=== PATIENT | female | born 1975 | race African-American/Black ===

== ENCOUNTER 2017-10-09 19:30 | Outpatient (CLI) | payer OTHER | END 2017-10-09 19:31 | disposition home or self-care (01) | LOC: SLEEPLAB 19:30 | PROVIDERS: ATTEND Internal Medicine | DX: G47.33 Obstructive sleep apnea (adult) (pediatric) (principal); R53.83 Other fatigue; I10 Essential (primary) hypertension; G47.00 Insomnia, unspecified; G47.10 Hypersomnia, unspecified | CPT/HCPCS: 95811 ==

== ENCOUNTER 2018-03-23 14:07 | Outpatient (CLI) | payer OTHER | END 2018-03-23 14:08 | disposition home or self-care (01) | LOC: DTY/OP 14:07 | PROVIDERS: ATTEND Surgery | DX: E66.01 Morbid (severe) obesity due to excess calories (principal) | CPT/HCPCS: 97802 ==

== ENCOUNTER 2018-09-23 13:21 | Outpatient (CLI) | payer OTHER ==
--- NOTE | 2018-09-24 11:56 | MMO ---
Bilateral MAMMO Bilat Screen [facility]. CLINICAL HISTORY: Patient is 43 years old and is seen for screening. The patient has no family history of breast cancer. The patient has no personal history of cancer. VIEWS: The views performed were: bilateral craniocaudal with tomosynthesis; bilateral mediolateral oblique with tomosynthesis; and bilateral exaggerated craniocaudal. FILMS COMPARED: The present examination has been compared to prior imaging studies performed at [facility] on 06/24/2012, 07/05/2012, 09/12/2013, 10/27/2014, 12/19/2015 and 02/10/2017. MAMMOGRAM FINDINGS: There are scattered fibroglandular densities. There are no suspicious masses, suspicious calcifications, or new areas of architectural distortion. IMPRESSION: THERE IS NO MAMMOGRAPHIC EVIDENCE OF MALIGNANCY. A ROUTINE FOLLOW-UP MAMMOGRAM IN 1 YEAR IS RECOMMENDED. THE RESULTS OF THIS EXAM WERE SENT TO THE PATIENT. ACR BI-RADS Category 1 - Negative MAMMOGRAPHY NOTE: 1. A negative mammogram report should not delay a biopsy if a dominant of clinically suspicious mass is present. 2. Approximately 10% to 15% of breast cancers are not detected by mammography. 3. Adenosis and dense breasts may obscure an underlying neoplasm.
== END 2018-09-23 13:22 | disposition home or self-care (01) ==
LOC: BICMAMMO 13:21
PROVIDERS: ATTEND Internal Medicine
DX: Z12.31 Encounter for screening mammogram for malignant neoplasm of breast (principal)
CPT/HCPCS: 77063; 77067

== ENCOUNTER 2019-07-14 12:02 | Day surgery (SDC) | payer OTHER ==
[2019-07-13 08:46] VITALS: BMI 52.7
[2019-07-14] MEDS ORDERED: PROPOFOL 200 MG/20 ML VIAL ONE (14:43)
--- NOTE | 2019-07-14 16:45 | OP ---
DATE OF PROCEDURE: 07/14/2019 PROCEDURE PERFORMED: Screening colonoscopy. PREPROCEDURE DIAGNOSIS: Preoperative screening colonoscopy. POSTPROCEDURE DIAGNOSES: 1. Exam to cecum; good bowel preparation. 2. Mild left-sided diverticulosis coli. 3. No polyps or colitis seen. 4. Normal retroflexed exam in the rectum. DESCRIPTION OF PROCEDURE: Written informed consent was obtained. The patient was brought to the endoscopy suite. Total intravenous anesthesia was administered by Dr. Louise. The patient was placed in the left lateral decubitus position. A digital rectal exam was performed that was unremarkable. A Pentax video colonoscope was inserted through the anal canal and advanced under direct visualization to the cecum. Position in the cecum was verified by clear identification of the appendiceal orifice and the ileocecal valve. The quality of the bowel preparation was good. Each colon segment was examined carefully as the colonoscope was slowly withdrawn from the cecum. Vascular pattern and haustral folds appeared normal. Occasional diverticular orifices were noted in the sigmoid colon. No polyp or colitis was seen. In the rectum, a retroflexed view showed no abnormalities. The colon was then decompressed as the colonoscope was completely removed from the patient. She was transferred to the Day Stay surgery area for postprocedure monitoring. There were no immediate complications. RECOMMENDATIONS: 1. Resume previous diet and medications. 2. Repeat colonoscopy for colon cancer screening in 10 years. 3. Follow up with Gastroenterology as needed. 4. Follow up with [facility] as scheduled. Job ID: [id number]
== END 2019-07-14 14:55 | disposition home or self-care (01) ==
LOC: SDC 12:02 → EEVIPCON 12:02 → SDC 14:55
PROVIDERS: ATTEND Internal Medicine Gastroenterology
PROC: 0DJD8ZZ Inspection of Lower Intestinal Tract, Via Natural or Artificial Opening Endoscopic (ICD-10-PCS; principal; 2019-07-14)
DX: Z12.11 Encounter for screening for malignant neoplasm of colon (principal); K57.30 Diverticulosis of large intestine without perforation or abscess without bleeding; I12.9 Hypertensive chronic kidney disease with stage 1 through stage 4 chronic kidney disease, or unspecified chronic kidney disease; N18.4 Chronic kidney disease, stage 4 (severe); D63.1 Anemia in chronic kidney disease; G47.30 Sleep apnea, unspecified; Z79.82 Long term (current) use of aspirin; Z79.899 Other long term (current) drug therapy; Z99.89 Dependence on other enabling machines and devices
CPT/HCPCS: J2704

== ENCOUNTER 2019-11-29 14:43 | Outpatient (CLI) | payer OTHER ==
--- NOTE | 2019-11-29 15:31 | MMO ---
Bilateral MAMMO Bilat Diag [facility]. CLINICAL HISTORY: Patient is 44 years old and is seen for diagnostic exam. The patient has no family history of breast cancer. The patient has no personal history of cancer. VIEWS: The views performed were: bilateral craniocaudal with tomosynthesis; bilateral mediolateral oblique with tomosynthesis; and bilateral mediolateral with tomosynthesis. FILMS COMPARED: The present examination has been compared to prior imaging studies performed at [facility] on 09/23/2018 and 11/29/2019, and at [facility] on 12/19/2015 and 02/10/2017. This study has been interpreted with the assistance of computer-aided detection. MAMMOGRAM FINDINGS: There are scattered fibroglandular densities. There are benign appearing calcifications in the right breast. No mammo or sono evidence of a left retroaerolar mass. There are no suspicious masses, suspicious calcifications, or new areas of architectural distortion. IMPRESSION: THERE IS NO MAMMOGRAPHIC EVIDENCE OF MALIGNANCY. A ROUTINE FOLLOW-UP MAMMOGRAM IN 1 YEAR IS RECOMMENDED. THE RESULTS OF THIS EXAM WERE SENT TO THE PATIENT. ACR BI-RADS Category 2 - Benign finding MAMMOGRAPHY NOTE: 1. A negative mammogram report should not delay a biopsy if a dominant of clinically suspicious mass is present. 2. Approximately 10% to 15% of breast cancers are not detected by mammography. 3. Adenosis and dense breasts may obscure an underlying neoplasm. Reported by: YOLETTE JAMA MD Electonically Signed: [id number]
--- NOTE | 2019-11-29 16:12 | ULT ---
LEFT BREAST ULTRASOUND: 11/29/19 HISTORY: Palpable abnormality in the retroareolar region of the left breast. FINDINGS: Correlation is made with the mammogram of same date. Sonographic evaluation of the retroareolar region of the left breast demonstrates no abnormality. IMPRESSION: BIRADS 2: Benign Finding(s) Routine annual screening mammography (for women over age 40).
== END 2019-11-29 14:44 | disposition home or self-care (01) ==
LOC: BICMAMMO 14:43
PROVIDERS: ATTEND Internal Medicine
DX: N64.4 Mastodynia (principal)
CPT/HCPCS: 77066; G0279

== ENCOUNTER 2020-04-19 13:54 | Outpatient (CLI) | payer OTHER | END 2020-04-19 13:55 | disposition home or self-care (01) | LOC: DTY/OP 13:54 | PROVIDERS: ATTEND Surgery | DX: E66.01 Morbid (severe) obesity due to excess calories (principal) | CPT/HCPCS: 97802 ==

== ENCOUNTER 2020-06-18 13:29 | Outpatient (CLI) | payer OTHER ==
--- NOTE | 2020-06-18 14:22 | RAD ---
EXAM: Two views chest PROVIDED CLINICAL HISTORY: Chronic kidney disease COMPARISON: 03/13/2011 FINDINGS: Cardiac and mediastinal silhouette appears within normal limits. Lungs appear free of significant opa city. No pleural fluid or pneumothorax apparent. IMPRESSION: No evidence for an acute cardiopulmonary process.
== END 2020-06-18 13:30 | disposition home or self-care (01) ==
LOC: BICRAD 13:29
PROVIDERS: ATTEND Internal Medicine Nephrology
DX: N18.5 Chronic kidney disease, stage 5 (principal)
CPT/HCPCS: 71046

== ENCOUNTER 2020-07-05 14:51 | Outpatient (CLI) | payer OTHER ==
--- NOTE | 2020-07-06 08:32 | ULT ---
ULTRASOUND VENOUS MAPPING UPPER EXTREMITIES BILATERAL: DATE: 07/05/2020 HISTORY: 44-year-old female. Z 01.818. N 18.6. End-stage renal disease. Surgical planning study for creation of arteriovenous fistula for hemodialys is. FINDINGS: RIGHT: Brachial artery:5 mm Radial artery:2.5 mm Ulnar artery:2.5 mm Cephalic vein: Proximal arm: 6.5 mm Mid arm: 7 mm Distal arm: 6 mm Antecubital: 7 mm Proximal forearm: 3.5 mm Mid forearm: 4 mm Distal forearm: 3 mm Basilic vein: Proximal arm: 6 mm Mid arm: 6.5 mm Distal arm: 6 mm Antecubital: 5 mm Proximal forearm: 1.5 mm Mid forearm: 2 mm Distal forearm: 1.5 mm LEFT: Brachial artery:4.5 mm Radial artery:2.5 mm Ulnar artery:2 mm Cephalic vein: Proximal arm: 3 mm Mid arm: 5.5 mm Distal arm: 4.5 mm Antecubital: 7 mm Proximal forearm: 3.5 mm Mid forearm: 3 mm Distal forearm: 3 mm Basilic vein: Proximal arm: 5 mm Mid arm: 5 mm Distal arm: 5.5 mm Antecubital: 8 mm Proximal forearm: 3.5 mm Mid forearm: 4 mm Distal forearm: 2.5 mm IMPRESSION: Bilateral basilic, and bilateral cephalic veins are consistently greater than 3 mm.
== END 2020-07-05 14:52 | disposition home or self-care (01) ==
LOC: BICULT 14:51
PROVIDERS: ATTEND Internal Medicine Nephrology
DX: Z01.818 Encounter for other preprocedural examination (principal); N18.6 End stage renal disease
CPT/HCPCS: 93970

== ENCOUNTER 2020-08-03 06:02 | Day surgery (SDC) | payer OTHER ==
[2020-08-01 15:44] VITALS: BMI 52.5
[2020-08-03] MEDS ORDERED: Fentanyl 100 MCG/2 ML VIAL ONE (06:35)
[2020-08-03] MEDS ORDERED: Midazolam HCl 2 mg/2 ml Vial ONE (06:35)
[2020-08-03] MEDS ORDERED: XYLOCAINE 2%-EPI 1:100,000 20 ML VIAL ONE (06:45)
[2020-08-03] MEDS ORDERED: Bupivacaine 0.25% HCL 30 ML VIAL ONE (06:45)
[2020-08-03] MEDS ORDERED: Sodium Chloride 0.9% 20 ML ONE (06:45)
[2020-08-03] MEDS ORDERED: Heparin 5,000 UNITS/ML VIAL ONE (06:45)
[2020-08-03] MEDS ORDERED: Protamine Sulfate 50 MG/5 ML VIAL ONE (06:45)
[2020-08-03] MEDS ORDERED: Heparin 10,000 UNITS/ 10 ML VIAL ONE (06:45)
[2020-08-03] MEDS ORDERED: PROPOFOL 200 MG/20 ML VIAL ONE (11:28)
[2020-08-03] MEDS ORDERED: Bupivacaine HCl 0.5%/Epinephrine 1:200,000/PF 30 ml Vial ONE (11:28)
--- NOTE | 2020-08-03 13:01 | RAD ---
PORTABLE CHEST: Date: 08/03/2020 HISTORY: Postop. COMPARISON: 06/18/2020. FINDINGS: Large caliber central line has been placed. The line overlies the SVC and appears to enter via the ri ght jugular. Lungs appear clear. No acute lung process. Heart and mediastinum unremarkable. IMPRESSION: No acute findings. POS: AGW
--- NOTE | 2020-08-03 13:09 | PDOC.OP ---
Operative Note - Operative Note Operative Note: DATE OF PROCEDURE: 08/03/2020 PROCEDURE: Tunneled hemodialysis catheter placement in the left arm Richard AV fistula. SURGEON: Ger Figueroa M.D. PREOPERATIVE DIAGNOSIS: End-stage renal failure. POSTOPERATIVE DIAGNOSIS: End-stage renal failure. HISTORY: Patient with end-stage renal failure who requires permanent access for initiation of hemodialysis. After reviewing vein mapping the decision was made to proceed with a primary fistula on the left arm. A tunneled dialysis catheter was also requested by the patient's loop machine operator for immediate institution of dialysis PROCEDURE: After informed consent was obtained and appropriate preoperative antibiotics were administered, the patient was taken to the Operating Room, placed in the supine position and monitored anesthesia care was administered. The neck and chest were prepped and draped in a standard sterile fashion and the patient placed in Trendelenburg position. A sterile ultrasound probe was used to identify the patent compressible right IJ vein which was accessed under direct ultrasound guidance. A wire was threaded through the needle and confirmed by ultrasound to be within the patent compressible vessel with the tip in the vena cava by fluoroscopy. Local anesthesia was infused to the skin and subcutaneous tissues of the right neck and chest. An infraclavicular incision was made and a catheter tunneled from the infraclavicular to the right IJ access site. The right IJ was sequentially dilated over the wire following which a dilator and sheath were placed over the wire and the dilator and wire removed leaving the sheath in place. The catheter was tunneled through the sheath which was then split and removed leaving the catheter in place. This was confirmed by fluoroscopy to be in good position in the superior vena cava with no kinking of the course of the catheter. Both ports easily aspirated dark venous nonpulsatile blood and easily flushed without resistance. Heparin was instilled to the quantity specified on the hub, and the hub was secured to the skin with 3-0 nylon sutures. The skin incision at the neck was closed in two layers with 4-0 Monocryl suture and Dermabond dressings were placed. The skin at the exit site was snugged up around the catheter with 4-0 Monocryl suture and Dermabond was placed there as well. Once the Dermabond was dry, a Biopatch and Tegaderm dressing was placed at the exit site. Attention was then turned to creation of the left AV fistula. A preoperative block had been placed by anesthesia and adequacy confirmed. The patient's arm was prepped and draped in standard sterile fashion. The palpable cephalic vein and radial artery were marked on the skin. An incision was made between these 2 structures and dissection carried down to the cephalic vein. This was felt to be of adequate caliber and quality to support an AV fistula. The vein was interrogated with cardiac dilators and easily accepted up to a 3.5 mm dilator. The vein was flushed with heparinized saline and clamped. The radial artery was identified and dissected free and was felt to be of adequate caliber and quality to support a fistula. This was dissected free. Heparin was administered systemically and allowed to circulate for 3 minutes. After the heparin had circulated for 3 minutes, the radial artery was clamped proximally and distally. An anterior arteriotomy was created with an 11 blade and extended with Nuñez scissors. The vein was spatulated and an end-to-side anastomosis was created with excellent technical result. Prior to tying down the anastomosis, the arterial inflow was released flushing the anastomosis. The anastomosis was then secured and hemostasis was verified. Flow was established first through the fistula following which flow was restored through the artery. The patient had a palpable thrill in the cephalic vein as well as a good Doppler signal to the level of the antecubital fossa. The wound was irrigated and examined for hemostasis was again confirmed to be excellent. The subcutaneous tissues were reapproximated with a running 3-0 Monocryl sutures and the skin was closed with running 4-0 subcuticular Monocryl suture. Dermabond dressings were placed. Prior to leaving the operating room the fistula was again examined by Doppler and a good bruit confirmed. The patient was then taken to recovery in good condition. Estimated blood loss was minimal. There were no complications. There were no specimens.
== END 2020-08-03 11:57 | disposition home or self-care (01) ==
LOC: SDC 06:02
PROVIDERS: ATTEND Surgery
PROC: 031C0AF Bypass Left Radial Artery to Lower Arm Vein with Autologous Arterial Tissue, Open Approach (ICD-10-PCS; principal; 2020-08-03)
DX: N18.6 End stage renal disease (principal); Z79.82 Long term (current) use of aspirin; Z79.899 Other long term (current) drug therapy
CPT/HCPCS: 71045; C1752; J0690; J1644; J2250; J2720; J3010; S0020

== ENCOUNTER 2020-09-11 06:55 | Day surgery (SDC) | payer OTHER ==
[2020-09-10 12:52] VITALS: BMI 53.5
[2020-09-11 08:50] VITALS: BP 133/83; TEMP 97.9
== END 2020-09-11 08:20 | disposition home or self-care (01) ==
LOC: SPEC 06:55
PROVIDERS: ATTEND Surgery
DX: T82.590A Other mechanical complication of surgically created arteriovenous fistula, initial encounter (principal); I12.0 Hypertensive chronic kidney disease with stage 5 chronic kidney disease or end stage renal disease; N18.6 End stage renal disease; N25.81 Secondary hyperparathyroidism of renal origin; E66.01 Morbid (severe) obesity due to excess calories; Z53.9 Procedure and treatment not carried out, unspecified reason; Z68.43 Body mass index [BMI] 50.0-59.9, adult; Z86.73 Personal history of transient ischemic attack (TIA), and cerebral infarction without residual deficits; Z79.82 Long term (current) use of aspirin; Z79.899 Other long term (current) drug therapy; Z99.2 Dependence on renal dialysis

== ENCOUNTER 2020-09-20 11:39 | Outpatient (CLI) | payer OTHER ==
[2020-08-01 11:45] LABS: Anion Gap 13 mmol/L (10-20); BUN (Urea Nitrogen) 35 mg/dL (7.0-18.7); Calc. Creatinine Clearance 0 mL/min (70-130); Calcium 10.3 mg/dL (7.8-10.44); Carbon Dioxide 20 mmol/L (22-29); Chloride 109 mmol/L (98-107); Glucose 101 mg/dL (70-105); Potassium 4.3 mmol/L (3.5-5.1); Sodium 138 mmol/L (136-145)
[2020-08-01 11:52] LABS: #Monocytes 0.7 10x3/uL (0.0-1.1); #Neutrophils 5.6 10x3/uL (1.5-8.4); %Basophils 0.4 % (0.0-2.0); %Eosinophils 0.4 % (0.0-6.0); %Lymphocytes 18.5 % (18.0-47.0); %Monocytes 8.6 % (0.0-10.0); Hemoglobin 10.5 g/dL (12.0-16.0); Mean Corpuscular HGB CONC 32.1 G/DL (32.0-36.0); Mean Corpuscular Hemoglobin 30.1 PG (27.0-33.0); Mean Corpuscular Volume 93.7 fl (80.0-100.0); Platelet Count 335 10x3/uL (130-400); RBC Distribution Width 13.2 % (11.5-14.5); Red Blood Cell (RBC) Count 3.49 10x6/uL (3.90-5.20); White Blood Cell (WBC) Count 7.8 10x3/uL (4.5-11.0)
[2020-08-02 02:43] LABS: SARS-CoV-2 PCR by NAA Not Detected (NotDetected)
[2020-09-20 14:32] LABS: #Eosinphils 0.1 10x3/uL (0.0-0.5); #Monocytes 0.4 10x3/uL (0.0-1.1); #Neutrophils 4.7 10x3/uL (1.5-8.4); %Basophils 0.4 % (0.0-2.0); %Eosinophils 1.5 % (0.0-6.0); %Lymphocytes 30.1 % (18.0-47.0); %Monocytes 5.4 % (0.0-10.0); %Neutrophils 62.5 % (40.0-75.0); Hemoglobin 10.5 g/dL (12.0-15.5); Mean Corpuscular HGB CONC 32.4 g/dL (32.0-36.0); Mean Corpuscular Hemoglobin 30.8 pg (27.0-33.0); Mean Platelet Volume 9.5 fl (7.4-10.4); Platelet Count 320 10x3/uL (150-450); Red Blood Cell (RBC) Count 3.41 10x6/uL (3.90-5.03); White Blood Cell (WBC) Count 7.5 10x3/uL (3.5-10.5)
[2020-09-20 14:37] LABS: Anion Gap 17 mmol/L (10-20); BUN (Urea Nitrogen) 15 mg/dL (7.0-18.7); Calc. Creatinine Clearance 0 mL/min (70-130); Calcium 9.7 mg/dL (7.8-10.44); Carbon Dioxide 30 mmol/L (22-29); Chloride 95 mmol/L (98-107); Glucose 215 mg/dL (70-105); Sodium 139 mmol/L (136-145)
[2020-09-21 04:28] LABS: SARS-CoV-2 PCR by NAA Not Detected (NotDetected)
== END 2020-09-20 11:40 ==
LOC: LABBT 11:39
PROVIDERS: ATTEND Physician Assistant
DX: Z01.812 Encounter for preprocedural laboratory examination (principal); Z20.822 Contact with and (suspected) exposure to COVID-19; N18.6 End stage renal disease; Z99.2 Dependence on renal dialysis
CPT/HCPCS: 80048; 85025; 87635; U0003; U0005

== ENCOUNTER 2020-09-25 10:03 | Day surgery (SDC) | payer OTHER ==
[2020-09-24 14:40] VITALS: BMI 49.7
[2020-09-25] MEDS ORDERED: Heparin 5,000 UNITS/ML VIAL ONE (10:41)
[2020-09-25] MEDS ORDERED: Bupivacaine 0.25% HCL 30 ML VIAL ONE (10:41)
[2020-09-25] MEDS ORDERED: Ioversol 68 % 50 ML VIAL ONE (10:41)
[2020-09-25] MEDS ORDERED: Lidocaine 1% w/Epinephrine 1:100K 20 ML VIAL ONE (10:41)
[2020-09-25] MEDS ORDERED: Protamine Sulfate 50 MG/5 ML VIAL ONE (10:41)
[2020-09-25] MEDS ORDERED: Fentanyl 100 MCG/2 ML VIAL ONE (10:55)
[2020-09-25] MEDS ORDERED: Midazolam HCl 2 mg/2 ml Vial ONE (10:55)
[2020-09-25] MEDS ORDERED: cefOXitin Sodium/Dextrose 2 GM/50 ML BAG ONE (12:27)
[2020-09-25] MEDS ORDERED: Propofol 500 MG/50 ML VIAL ONE (12:27)
[2020-09-25] MEDS ORDERED: Lidocaine 1% PF 5 ML VIAL ONE (12:45)
[2020-09-25] MEDS ORDERED: Bupivacaine HCl 0.5%/Epinephrine 1:200,000/PF 30 ml Vial ONE (12:45)
[2020-09-25] MEDS ORDERED: Heparin 1,000 UNITS/ML VIAL ONE (15:27)
[2020-09-25] MEDS ORDERED: Ondansetron ODT 4 MG TAB ONE (15:38)
== END 2020-09-25 15:55 | disposition home or self-care (01) ==
LOC: SDC 10:03
PROVIDERS: ATTEND Surgery
PROC: 03180AD Bypass Left Brachial Artery to Upper Arm Vein with Autologous Arterial Tissue, Open Approach (ICD-10-PCS; principal; 2020-09-25)
DX: I12.0 Hypertensive chronic kidney disease with stage 5 chronic kidney disease or end stage renal disease (principal); N18.6 End stage renal disease; G47.33 Obstructive sleep apnea (adult) (pediatric); E66.01 Morbid (severe) obesity due to excess calories; Z68.42 Body mass index [BMI] 45.0-49.9, adult; Z79.82 Long term (current) use of aspirin; Z79.899 Other long term (current) drug therapy; Z86.73 Personal history of transient ischemic attack (TIA), and cerebral infarction without residual deficits
CPT/HCPCS: J0694; J1644; J2250; J2704; J2720; J3010; Q0162; Q9967; S0020

== ENCOUNTER 2020-12-03 12:57 | Outpatient (CLI) | payer OTHER ==
[2020-12-03 14:53] LABS: #Eosinphils 0.2 10x3/uL (0.0-0.5); #Monocytes 0.5 10x3/uL (0.0-1.1); %Basophils 0.7 % (0.0-2.0); %Eosinophils 2.5 % (0.0-6.0); %Lymphocytes 39.6 % (18.0-47.0); %Monocytes 7.9 % (0.0-10.0); %Neutrophils 49.1 % (40.0-75.0); Hemoglobin 11.3 g/dL (12.0-15.5); Mean Corpuscular HGB CONC 32.8 g/dL (32.0-36.0); Mean Corpuscular Volume 97.7 fl (81.6-98.3); Mean Platelet Volume 9.8 fl (7.4-10.4); Platelet Count 326 10x3/uL (150-450); Red Blood Cell (RBC) Count 3.53 10x6/uL (3.90-5.03); White Blood Cell (WBC) Count 6.1 10x3/uL (3.5-10.5)
[2020-12-03 15:16] LABS: Anion Gap 14 mmol/L (10-20); BUN (Urea Nitrogen) 33 mg/dL (7.0-18.7); Calc. Creatinine Clearance 0 mL/min (70-130); Calcium 9.5 mg/dL (7.8-10.44); Carbon Dioxide 24 mmol/L (22-29); Chloride 107 mmol/L (98-107); Glucose 113 mg/dL (70-105); Potassium 4.2 mmol/L (3.5-5.1); Sodium 141 mmol/L (136-145)
== END 2020-12-03 12:58 | disposition home or self-care (01) ==
LOC: LABBT 12:57
PROVIDERS: ATTEND Surgery
DX: Z01.812 Encounter for preprocedural laboratory examination (principal); N18.6 End stage renal disease
CPT/HCPCS: 80048; 85025

== ENCOUNTER 2020-12-06 08:34 | Day surgery (SDC) | payer OTHER ==
[2020-12-06] MEDS ORDERED: Fentanyl 100 MCG/2 ML VIAL ONE ×2 (09:31→10:26)
[2020-12-06] MEDS ORDERED: Bupivacaine HCl 0.5%/Epinephrine 1:200,000/PF 30 ml Vial ONE (09:40)
[2020-12-06] MEDS ORDERED: Propofol 500 MG/50 ML VIAL ONE (10:26)
[2020-12-06] MEDS ORDERED: Bupivacaine 0.25% HCL 30 ML VIAL ONE (10:29)
[2020-12-06] MEDS ORDERED: Lidocaine 2% PF 5 ML VIAL ONE (10:29)
[2020-12-06] MEDS ORDERED: Protamine Sulfate 250 MG/25 ML VIAL ONE (10:29)
[2020-12-06] MEDS ORDERED: Heparin 5,000 UNITS/ML VIAL ONE (10:29)
[2020-12-06] MEDS ORDERED: EPINEPHrine 1 MG/ML AMP ONE (10:29)
[2020-12-06] MEDS ORDERED: Protamine Sulfate 50 MG/5 ML VIAL ONE (10:30)
[2020-12-06] MEDS ORDERED: Propofol 1,000 MG/100 ML VIAL IV ONE (10:40)
[2020-12-06] MEDS ORDERED: Heparin 1,000 UNITS/ML VIAL ONE (15:13)
== END 2020-12-06 16:00 | disposition home or self-care (01) ==
LOC: SDC 08:34
PROVIDERS: ATTEND Surgery
PROC: 03180ZF Bypass Left Brachial Artery to Lower Arm Vein, Open Approach (ICD-10-PCS; principal; 2020-12-06)
DX: I12.0 Hypertensive chronic kidney disease with stage 5 chronic kidney disease or end stage renal disease (principal); N18.6 End stage renal disease; T82.868A Thrombosis due to vascular prosthetic devices, implants and grafts, initial encounter; G47.33 Obstructive sleep apnea (adult) (pediatric); E66.01 Morbid (severe) obesity due to excess calories; Z68.42 Body mass index [BMI] 45.0-49.9, adult; Z86.73 Personal history of transient ischemic attack (TIA), and cerebral infarction without residual deficits; Z79.82 Long term (current) use of aspirin; Z79.899 Other long term (current) drug therapy; Z99.2 Dependence on renal dialysis
CPT/HCPCS: J0171; J0690; J1644; J2001; J2704; J2720; J3010; S0020

== ENCOUNTER 2022-09-03 10:48 | Outpatient (CLI) | payer BC | END 2022-09-03 10:49 | disposition home or self-care (01) | LOC: BICMAMMO 10:48 | PROVIDERS: ATTEND Internal Medicine | DX: Z12.31 Encounter for screening mammogram for malignant neoplasm of breast (principal); N64.89 Other specified disorders of breast | CPT/HCPCS: 77063; 77067 ==

== ENCOUNTER 2023-07-24 16:18 | Emergency (ER) | payer BC, MEDICARE ==
[2023-07-24 17:08] LABS: Bilirubin Negative (Negative); Blood, Urine Negative (Negative); CAUTI Indications for Culture Pelvic or flank pain; Clarity Clear (Clear); Glucose, Urine (Dipstick) Normal (Negative); Ketone, Urine Negative (Negative); Leukocyte Negative Leu/uL (Negative); Nitrite Negative (Negative); Protein, Urine (Dipstick) 100 mg/dL (Neg-Trace); RBC/HPF 0-3 HPF (0-3); Specific Gravity, Urine 1.013 (1.002-1.036); Urobilinogen Normal mg/dL (Less than 2); WBC/HPF 0-3 HPF (0-3); pH, Urine 8.5 (5.0-9.0)
[2023-07-24 17:09] LABS: Bacteria/HPF 1+ HPF (None Seen); Pregnancy Test - Urine (BHCG) Negative (Negative); Pregu Control Background? CLEAR/WHITE (CLR/WHITE); Pregu Control Bar Appear? YES (CONTROL BAR); Specific Gravity 1.013 (1.002-1.036)
[2023-07-24 17:10] LABS: Urine Culture Reflex No No
[2023-07-24 17:15] LABS: #Basophils 0.1 thou/uL (0.0-0.2); #Eosinphils 0.1 thou/uL (0.0-0.7); #Monocytes 1.1 thou/uL (0.11-0.59); #Neutrophils 8.2 thou/uL (1.40-6.50); %Basophils 0.4 % (0.0-1.0); %Eosinophils 0.7 % (0.0-10.0); %Lymphocytes 19.6 % (21.0-51.0); %Monocytes 9.2 % (0.0-10.0); %Neutrophils 69.8 % (42.0-75.0); Hematocrit 32.5 % (36.0-47.0); Mean Corpuscular HGB CONC 33.8 g/dL (32.0-36.0); Mean Corpuscular Hemoglobin 32.8 pg (27.0-31.0); Mean Platelet Volume 9.1 fL (7.4-10.4); Platelet Count 367 10x3/uL (130-400); RBC Distribution Width 13.4 % (11.5-14.5); Red Blood Cell (RBC) Count 3.35 mill/uL (4.20-5.40); White Blood Cell (WBC) Count 11.7 10x3/uL (4.8-10.8)
[2023-07-24 17:29] LABS: ALT (SGPT) 18 U/L (8-55); AST (SGOT) 15 U/L (5-34); Albumin 4.3 g/dL (3.5-5.0); Alkaline Phosphatase 83 U/L (40-110); Anion Gap 13 mmol/L (10-20); BUN (Urea Nitrogen) 10 mg/dL (7.0-18.7); Bilirubin, Total 0.4 mg/dL (0.2-1.2); Calc. Creatinine Clearance 0 mL/min (70-130); Calcium 10.2 mg/dL (7.8-10.44); Carbon Dioxide 29 mmol/L (22-29); Chloride 101 mmol/L (98-107); Estimated GFR 20; Glucose 98 mg/dL (70-105); Potassium 3.8 mmol/L (3.5-5.1); Protein, Total 8.3 g/dL (6.0-8.3); Sodium 139 mmol/L (136-145)
[2023-07-24] MEDS ORDERED: Morphine 4 MG/ML VIAL ONE (17:48)
[2023-07-24] MEDS ORDERED: Ondansetron PF 4 MG/2 ML Vial ONE (17:48)
== END 2023-07-24 19:03 | disposition home or self-care (01) ==
LOC: ERS 16:18
DX: K57.32 Diverticulitis of large intestine without perforation or abscess without bleeding (principal); I12.0 Hypertensive chronic kidney disease with stage 5 chronic kidney disease or end stage renal disease; N18.6 End stage renal disease; Z99.2 Dependence on renal dialysis
CPT/HCPCS: 36415; 74176; 80053; 81001; 81025; 83690; 85025; 96374; 96375; J2270; J2405

== ENCOUNTER 2023-08-25 12:58 | Outpatient (CLI) | payer BC, MEDICARE | END 2023-08-25 12:59 | disposition home or self-care (01) | LOC: ULT 12:58 | PROVIDERS: ATTEND Internal Medicine | DX: N28.1 Cyst of kidney, acquired (principal) | CPT/HCPCS: 76770 ==

== ENCOUNTER 2023-11-24 11:34 | Outpatient (CLI) | payer MEDICARE, BC | END 2023-11-24 11:35 | disposition home or self-care (01) | LOC: BICMAMMO 11:34 | PROVIDERS: ATTEND Internal Medicine | DX: Z12.31 Encounter for screening mammogram for malignant neoplasm of breast (principal) | CPT/HCPCS: 77063; 77067 ==